=== PATIENT | male | born 1970 | race Caucasian/White ===

== ENCOUNTER → 2021-02-08 | Outpatient (CLI) | payer OTHER | END | disposition home or self-care (01) | LOC: RAH 14:33 | DX: M51.16 Intervertebral disc disorders with radiculopathy, lumbar region (principal); M48.061 Spinal stenosis, lumbar region without neurogenic claudication; M48.05 Spinal stenosis, thoracolumbar region; M40.46 Postural lordosis, lumbar region | CPT/HCPCS: 72148 ==